=== PATIENT | female | born 1995 | race Caucasian/White ===

== ENCOUNTER 2018-01-27 19:01 | Emergency (ER) | payer OTHER ==
[2018-01-27] MEDS ORDERED: ONDANSETRON HCL INJ/PF 4 MG/2 ML SDV IV ONE (19:27)
[2018-01-27] MEDS ORDERED: NORMAL SALINE 1000 ML 1,000 ML IV ONE (19:27)
[2018-01-27] MEDS ORDERED: HYDROMORPHONE HCL INJ/PF 2 MG/ML AMPULE IV ONE (19:27)
[2018-01-27] MEDS ORDERED: KETOROLAC TROMETHAMINE INJ/PF 30 MG/1 ML SDV IV ONE (19:45)
--- NOTE | 2018-01-27 19:50 | ER Document Report ---
ED Medical Screen (RME) - General Chief Complaint: Abdominal Pain Stated Complaint: RT ABDOMINAL PAIN Time Seen by Provider: 01/27/18 19:26 Notes: Patient was eating dinner when she had the sudden onset of right flank pain. This made her very nauseous. She cannot find a comfortable position. She has no previous history of kidney stones. She states she is in midcycle and this does feel somewhat similar to previous ovulation pain. She has had this once before and it spontaneously resolved. No known chronic medical problems or surgeries. TRAVEL OUTSIDE OF THE [place] IN LAST 30 DAYS: No - Related Data Allergies/Adverse Reactions: No Known Allergies Allergy (Verified 01/27/18 19:01) Past Medical History - Social History Frequency of alcohol use: None Renal/ Medical History: Denies: Hx Peritoneal Dialysis Physical Exam - Vital signs Vitals: Temp Pulse Resp BP Pulse Ox 97.6 F 69 16 128/71 H 100 01/27/18 19:05 01/27/18 19:05 01/27/18 19:05 01/27/18 19:05 01/27/18 19:05 Course - Vital Signs Vital signs: Temp Pulse Resp BP Pulse Ox 97.6 F 69 16 128/71 H 100 01/27/18 19:05 01/27/18 19:05 01/27/18 19:05 01/27/18 19:05 01/27/18 19:05 - Laboratory Result Diagrams: 01/27/18 19:38 01/27/18 19:38
[2018-01-27 20:08] LABS: HEMATOCRIT 42.7 % (36.0-47.0); HEMOGLOBIN 14.6 g/dL (12.0-15.5); MEAN CORPUSCULAR HEMOGLOBIN 30.8 pg (27.0-33.4); MEAN CORPUSCULAR HGB CONC 34.2 g/dL (32.0-36.0); MEAN CORPUSCULAR VOLUME 90 fl (80-97); PLATELET COUNT 312 10^3/uL (150-450); RED BLOOD COUNT 4.74 10^6/uL (3.72-5.28); RED CELL DISTRIBUTION WIDTH 12.9 % (11.5-14.0); WHITE BLOOD COUNT 9.5 10^3/uL (4.0-10.5)
[2018-01-27 20:14] LABS: ALANINE AMINOTRANSFERASE 29 U/L (9-52); ALBUMIN 4.8 g/dL (3.5-5.0); ALKALINE PHOSPHATASE 84 U/L (38-126); ANION GAP 13 (5-19); ASPARTATE AMINO TRANSFERASE 14 U/L (14-36); BILIRUBIN,DIRECT 0.3 mg/dL (0.0-0.4); BILIRUBIN,TOTAL 0.4 mg/dL (0.2-1.3); BLOOD UREA NITROGEN 19 mg/dL (7-20); CALCIUM 9.8 mg/dL (8.4-10.2); CARBON DIOXIDE 21 mmol/L (22-30); CHLORIDE 104 mmol/L (98-107); GLUCOSE 106 mg/dL (75-110); POTASSIUM 3.6 mmol/L (3.6-5.0); SODIUM 138.4 mmol/L (137-145); TOTAL PROTEIN 7.8 g/dL (6.3-8.2)
[2018-01-27 20:36] LABS: ABSOLUTE LYMPHOCYTES# (MANUAL) 5.6 10^3/uL (0.5-4.7); ABSOLUTE MONOCYTES # (MANUAL) 0.4 10^3/uL (0.1-1.4); ABSOLUTE NEUTROPHILS# (MANUAL) 3.3 10^3/uL (1.7-8.2); BASOPHILS % (MANUAL) 0 % (0-2); EOSINOPHILS % (MANUAL) 2 % (0-6); LYMPHOCYTES % (MANUAL) 58 % (13-45); MONOCYTES % (MANUAL) 4 % (3-13); SEGMENTED NEUTROPHILS % (MAN) 35 % (42-78); TOTAL CELLS COUNTED 100
[2018-01-27 20:38] LABS: PLATELET COMMENT ADEQUATE; RBC MORPHOLOGY COMMENT NORMO-CYTIC/CHROMIC
[2018-01-27] MEDS ORDERED: ONDANSETRON 4 MG TAB.RAPDIS PO ONE (21:37)
--- NOTE | 2018-01-27 21:56 | RADIOLOGY REPORT (SQ) ---
EXAM DESCRIPTION: CT ABD/PELVIS NO ORAL OR IV COMPLETED DATE/TIME: 01/27/2018 9:41 pm REASON FOR STUDY: rlq pain COMPARISON: None. TECHNIQUE: CT scan of the abdomen and pelvis performed without intravenous or oral contrast. Images reviewed with lung, soft tissue, and bone windows. Reconstructed coronal and sagittal MPR images revi ewed. All images stored on PACS. All CT scanners at this facility use dose modulation, iterative reconstruction, and/or weight based d osing when appropriate to reduce radiation dose to as low as reasonably achievable (ALARA). [facility]: Dose Right [facility]: CareDose [facility]: Dose Right [facility]: Teradose 4D [facility]: Smart [employer] RADIATION DOSE: CT Rad equipment meets quality standard of care and radiation dose reduction techniq ues were employed. CTDIvol: 5.6 mGy. DLP: 293 mGy-cm.mGy. LIMITATIONS: None. FINDINGS: LOWER CHEST: No significant findings. No nodules or infiltrates. NON-CONTRASTED LIVER, SPLEEN, ADRENALS: Evaluation limited by lack of IV contrast. No identified sign ificant masses. PANCREAS: No masses. No peripancreatic inflammatory changes. GALLBLADDER: No identified stones by CT criteria. No inflammatory changes to suggest cholecystitis. RIGHT KIDNEY AND URETER: No suspicious masses. Assessment limited by lack of IV contrast. No signif icant calcifications. No hydronephrosis or hydroureter. LEFT KIDNEY AND URETER: No suspicious masses. Assessment limited by lack of IV contrast. No signifi cant calcifications. No hydronephrosis or hydroureter. AORTA AND RETROPERITONEUM: No aneurysm. No retroperitoneal masses or adenopathy. BOWEL AND PERITONEAL CAVITY: No obvious masses or inflammatory changes. No free fluid. APPENDIX: Normal. PELVIS, BLADDER, AND ABDOMINAL WALL:Large mass posterior to the uterus with transverse measurement of 8.5 x 9 cm. Mixed heterogenous density with significant fatty components. Also fairly large calcif ic/bony components. Similar smaller mass in the left adnexa measuring 2 x 2.5 cm. No free fluid. Tom dder normal. BONES: No significant findings. OTHER: No other significant finding. IMPRESSION: 1. PELVIC MASSES DESCRIBED WITH SIGNIFICANT FATTY COMPONENTS WELL CALCIFIC/BONY COMPONENTS. THESE ARE MOST CONSISTENT WITH OVARIAN DERMOIDS. 2. NO OTHER SIGNIFICANT OR ACUTE PROCESS IN THE ABDOMEN OR PELVIS. COMMENT: Quality ID # [id number]: Final reports with documentation of one or more dose reduction techniques (e.g., Automated exposure control, adjustment of the mA and/or kV according to patient size, use of iterative reconstruction technique) TECHNICAL DOCUMENTATION: JOB ID: [id number] [employer]- All Rights Reserved Reading location - IP/workstation name: [email or web address]
--- NOTE | 2018-01-27 21:58 | ER Document Report ---
ED General - General Chief Complaint: Abdominal Pain Stated Complaint: RT ABDOMINAL PAIN Time Seen by Provider: 01/27/18 19:26 Mode of Arrival: Ambulatory Information source: Patient, Relative Notes: 22-year-old female with a history of depression and ulcerative colitis. Presents with complaint of abdominal pain. Patient states that 2 hours prior to arrival she was sitting at a restaurant when she had a sudden onset of right lower quadrant pain. She states the pain was sharp and initially constant, But is now intermittent. She does admit to prior similar symptoms and states that this occurs around the time that she is ovulating. Patient denies any fever, chills, dysuria, vaginal discharge. She is sexually active with her . She Was on control pills but she stopped this last month because she believed that the medication was causing her symptoms. TRAVEL OUTSIDE OF THE [place] IN LAST 30 DAYS: No - HPI Onset: Just prior to arrival Onset/Duration: Sudden, Intermittent Quality of pain: Stabbing Severity: Moderate Pain Level: 3 Associated symptoms: denies: Fever - Related Data Allergies/Adverse Reactions: No Known Allergies Allergy (Verified 01/27/18 19:01) Past Medical History - General Information source: Patient, Relative Last Menstrual Period: 01/13/18 - Social History Smoking Status: Never Smoker Frequency of alcohol use: None Drug Abuse: None Lives with: Family, Spouse/Significant other Family History: Reviewed & Not Pertinent Patient has suicidal ideation: No Patient has homicidal ideation: No - Medical History Medical History: Other - depression ulcerative colitis Renal/ Medical History: Denies: Hx Peritoneal Dialysis Review of Systems - Review of Systems Constitutional: Malaise. denies: Fever EENT: No symptoms reported Cardiovascular: denies: Chest pain, Syncope Respiratory: No symptoms reported Gastrointestinal: Abdominal pain, Nausea. denies: Vomiting, Constipation, Blood in vomit, Black stools Genitourinary: denies: Dysuria, Discharge, Flank pain Female Genitourinary: denies: , Vaginal discharge, Vaginal odor Physical Exam - Vital signs Vitals: Temp Pulse Resp BP Pulse Ox 97.6 F 69 16 128/71 H 100 01/27/18 19:05 01/27/18 19:05 01/27/18 19:05 01/27/18 19:05 01/27/18 19:05 Interpretation: Normal. No: Hypotensive, Tachycardic, Febrile - General General appearance: Appears well, Alert - Abdominal Inspection: Normal Distension: No distension Bowel sounds: Normal Tenderness: Tender, Other - RLQ pain. No: McBurney's point, Melgar's sign, Guarding, Rebound Organomegaly: No organomegaly - Genitourinary Speculum exam: Normal, Cervix closed Vaginal bleeding: None Bimanuel exam: Adnexal mass, Adnexal tenderness - Back Back: Normal, Nontender. No: CVA tenderness Course - Re-evaluation Re-evalutation: 01/28/18 00:31 22-year-old female presents with complaint of sudden onset of right lower quadrant pain just prior to arrival. Upon arrival vitals are reviewed and within normal limits. Patient is afebrile, normotensive and not hypoxic. She does not appear toxic or dehydrated. Exam is significant for right lower quadrant tenderness without guarding or rebound.CT of the abdomen and pelvis showed a complex mass behind the uterus. Transvaginal ultrasound was then ordered and this was significant for a 10 cm dermoid cyst on the right ovary. Patient Received fentanyl for pain.Significant laboratory findings include a urinalysis that shows 80 ketones. Patient did receive IV fluids for this. I did page [employer]PER[employer] at 12:34 AM no answer at this time. I spoke to the patient and her at length regarding the need to return to ER if she experiences pain again. I did explain that she could be intermittently torsing. I spoke with Dr. Zambrano from OBGYN who does not recommend any emergent intervention, but does advise f/u for discussion of surgical removal of cyst. Patient was discharged home with Citlalli and Jorge. Laboratory 01/27/18 01/27/18 01/27/18 19:38 19:38 19:38 WBC 9.5 RBC 4.74 Hgb 14.6 Hct 42.7 MCV 90 MCH 30.8 MCHC 34.2 RDW 12.9 Plt Count 312 Total Counted 100 Seg Neutrophils % Not Reportable Seg Neuts % (Manual) 35 L Lymphocytes % Not Reportable Lymphocytes % (Manual) 58 H Atypical Lymphs % 1 Monocytes % Not Reportable Monocytes % (Manual) 4 Eosinophils % Not Reportable Eosinophils % (Manual) 2 Basophils % Not Reportable Basophils % (Manual) 0 Absolute Neutrophils Not Reportable Abs Neuts (Manual) 3.3 Absolute Lymphocytes Not Reportable Abs Lymphs (Manual) 5.6 H Absolute Monocytes Not Reportable Abs Monocytes (Manual) 0.4 Absolute Eosinophils Not Reportable Absolute Eos (Manual) 0.2 Absolute Basophils Not Reportable Abs Basophils (Manual) 0.0 Platelet Comment ADEQUATE RBC Morph Comment NORMO-CYTIC/CHROMIC Sodium 138.4 Potassium 3.6 Chloride 104 Carbon Dioxide 21 L Anion Gap 13 BUN 19 Creatinine 0.61 Est GFR ( Amer) > 60 Est GFR (Non-Af Amer) > 60 Glucose 106 Calcium 9.8 Total Bilirubin 0.4 Direct Bilirubin 0.3 Neonat Total Bilirubin Not Reportable Neonat Direct Bilirubin Not Reportable Neonat Indirect Bili Not Reportable AST 14 ALT 29 Alkaline Phosphatase 84 Total Protein 7.8 Albumin 4.8 Serum HCG, Qual NEGATIVE Urine Color Urine Appearance Urine pH Ur Specific Sunburst Urine Protein Urine Glucose (UA) Urine Ketones Urine Blood Urine Nitrite Urine Bilirubin Urine Urobilinogen Ur Leukocyte Esterase Urine WBC (Auto) Urine RBC (Auto) Squamous Epi Cells Auto Urine Mucus (Auto) Urine Ascorbic Acid Urine HCG, Qual 01/27/18 23:36 WBC RBC Hgb Hct MCV MCH MCHC RDW Plt Count Total Counted Seg Neutrophils % Seg Neuts % (Manual) Lymphocytes % Lymphocytes % (Manual) Atypical Lymphs % Monocytes % Monocytes % (Manual) Eosinophils % Eosinophils % (Manual) Basophils % Basophils % (Manual) Absolute Neutrophils Abs Neuts (Manual) Absolute Lymphocytes Abs Lymphs (Manual) Absolute Monocytes Abs Monocytes (Manual) Absolute Eosinophils Absolute Eos (Manual) Absolute Basophils Abs Basophils (Manual) Platelet Comment RBC Morph Comment Sodium Potassium Chloride Carbon Dioxide Anion Gap BUN Creatinine Est GFR ( Amer) Est GFR (Non-Af Amer) Glucose Calcium Total Bilirubin Direct Bilirubin Neonat Total Bilirubin Neonat Direct Bilirubin Neonat Indirect Bili AST ALT Alkaline Phosphatase Total Protein Albumin Serum HCG, Qual Urine Color YELLOW Urine Appearance CLEAR Urine pH 6.0 Ur Specific Sunburst 1.023 Urine Protein NEGATIVE Urine Glucose (UA) NEGATIVE Urine Ketones 80 H Urine Blood NEGATIVE Urine Nitrite NEGATIVE Urine Bilirubin NEGATIVE Urine Urobilinogen NEGATIVE Ur Leukocyte Esterase NEGATIVE Urine WBC (Auto) 4 Urine RBC (Auto) 1 Squamous Epi Cells Auto 1 Urine Mucus (Auto) OCC Urine Ascorbic Acid NEGATIVE Urine HCG, Qual NEGATIVE Abdomen/Pelvis CT 01/27/18 19:27 IMPRESSION: 1. PELVIC MASSES DESCRIBED WITH SIGNIFICANT FATTY COMPONENTS WELL CALCIFIC/BONY COMPONENTS. THESE ARE MOST CONSISTENT WITH OVARIAN DERMOIDS. 2. NO OTHER SIGNIFICANT OR ACUTE PROCESS IN THE ABDOMEN OR PELVIS. Transvaginal US 01/27/18 22:40 IMPRESSION: Bilateral ovarian dermoids measure 10.7 cm on the right and 2.7 cm on the left. There is increased risk for developing ovarian torsion, especially on the right. 01/28/18 00:[address] Zambrano from [employer] who recommends follow-up for removal of the cyst. 01/28/18 01:04 Patient tolerating fluids prior to discharge 01/28/18 03:42 - Vital Signs Vital signs: Temp Pulse Resp BP Pulse Ox 98.4 F 77 12 103/65 100 01/28/18 01:17 01/28/18 01:17 01/28/18 01:17 01/28/18 01:17 01/28/18 01:17 - Laboratory Result Diagrams: 01/27/18 19:38 01/27/18 19:38 Laboratory results interpreted by me: 01/27/18 01/27/18 01/27/18 19:38 19:38 23:36 Seg Neuts % (Manual) 35 L Lymphocytes % (Manual) 58 H Abs Lymphs (Manual) 5.6 H Carbon Dioxide 21 L Urine Ketones 80 H Procedures - Pelvic Exam Pelvic exam Cultures obtained: No Wet prep obtained: No Herpes culture obtained: No POC sent to lab: Yes Foreign body removed: No Bimanual exam performed: Yes - right adenexal fullness Discharge - Discharge Clinical Impression: Dermoid cyst of both ovaries Ovarian cyst Qualifiers: Laterality: bilateral Qualified Code(s): N83.201 - Unspecified ovarian cyst, right side Condition: Good Disposition: HOME, SELF-CARE Instructions: Abdominal Pain ([facility]), Ovarian Cyst ([facility]) Additional Instructions: Your ultrasound showed a large cyst on your right ovary. Currently There is adequate blood flow. If you experience a sudden onset of sharp abdominal pain please return to the emergency department immediately. This size cyst could cause a twisting of the ovary that could cmpromise blood flow. you will need to be seen by green hide inspector to discuss removal. Prescriptions: Hydrocodone/Acetaminophen [[place] 5-325 mg Tablet] 1 tab PO Q4H PRN #12 tablet PRN Reason: Pain Scale Of 2 Naproxen [Naprosyn] 500 mg PO Q12H #20 tablet Forms: Return to Work Referrals: NOA ZAMBRANO MD [ACTIVE STAFF] - Follow up tomorrow
[2018-01-27] MEDS ORDERED: FENTANYL CITRATE INJ/PF 100 MCG/2 ML AMPUL IV ONE (22:40)
[2018-01-27 23:53] LABS: APPEARANCE,URINE CLEAR; BILIRUBIN,URINE NEGATIVE (NEGATIVE); COLOR,URINE YELLOW; GLUCOSE, URINE NEGATIVE (NEGATIVE); KETONES,URINE 80 mg/dL (NEGATIVE); LEUKOCYTE ESTERASE,URINE NEGATIVE (NEGATIVE); NITRITE,URINE NEGATIVE (NEGATIVE); PROTEIN,URINE NEGATIVE (NEGATIVE); URINE SPECIFIC GRAVITY 1.023; UROBILINOGEN,URINE NEGATIVE mg/dL (<2.0)
--- NOTE | 2018-01-27 23:56 | RADIOLOGY REPORT (SQ) ---
EXAM DESCRIPTION: U/S NON OB PEL TV W/DOPPLER CLINICAL HISTORY: 22 years, Female, concern for torsion COMPARISON: CT, same day. TECHNIQUE: Transvaginal and transabdominal LIMITATIONS: None. FINDINGS: 8 cm uterus and 0.9 cm thick endometrial stripe appear of normal size, shape, echotexture, and vascularity. 10.9 cm right ovary contains a 10.7 cm complex mass with fat, fluid, and calcific components is correlated with CT consistent with a 10.7 cm right-sided ovarian dermoid. Vascularity present in right ovarian tissue. 4.8 cm left ovary contains a 2.7 cm complex mass with fat and calcific components correlated with CT consistent with a 2.7 cm left sided ovarian dermoid. Vascularity present in the left ovarian tissue. No free fluid. IMPRESSION: Bilateral ovarian dermoids measure 10.7 cm on the right and 2.7 cm on the left. There is increased risk for developing ovarian torsion, especially on the right.
[2018-01-28] MEDS ORDERED: NORMAL SALINE 1000 ML 1,000 ML IV ONE (00:44)
[2018-01-28] MEDS ORDERED: KETOROLAC TROMETHAMINE INJ/PF 30 MG/1 ML SDV IV ONE (00:48)
[2018-01-28 01:19] VITALS: BP 103/65
== END 2018-01-28 01:43 | disposition home or self-care (01) ==
LOC: ER 19:01
DX: D27.1 Benign neoplasm of left ovary (principal); D27.0 Benign neoplasm of right ovary; F32.9 Major depressive disorder, single episode, unspecified; R10.31 Right lower quadrant pain
CPT/HCPCS: 96376; 99284; 96361; 96374; 96375; 36415; 84703; 85025; 81025; 80053; 81001; 76830; 93976; 74176; S0119; J3010; J1885 ×2; J2405; J7030 ×2

== ENCOUNTER 2018-01-28 14:05 | Inpatient (IN) | payer OTHER ==
--- NOTE | 2018-01-28 14:57 | ER Document Report ---
ED General - General Chief Complaint: Pelvic Pain Stated Complaint: LOW RIGHT PELVIC PAIN,NAUSEA Time Seen by Provider: 01/28/18 14:43 Mode of Arrival: Ambulatory Information source: Patient Notes: 22-year-old female who was seen yesterday noted to have 10.7 cm dermoid cyst on the right and now 2.7 cm on the left presents with complaints of continued pain. Patient notes the pain was severe prior to arrival. Patient was sent home last night with pain medication Patient has follow-up with primary care physician and has referral in 7-10 days TRAVEL OUTSIDE OF THE [place] IN LAST 30 DAYS: No - HPI Onset: Yesterday Onset/Duration: Sudden, Intermittent Severity: Severe Pain Level: 3 Associated symptoms: Other Exacerbated by: Denies Relieved by: Denies Similar symptoms previously: Yes Recently seen / treated by doctor: Yes - Related Data Allergies/Adverse Reactions: No Known Allergies Allergy (Verified 01/27/18 19:01) Past Medical History - Social History Smoking Status: Never Smoker Cigarette use (# per day): No Chew tobacco use (# tins/day): No Smoking Education Provided: No Frequency of alcohol use: Occasional Drug Abuse: None Family History: Reviewed & Not Pertinent Patient has suicidal ideation: No Patient has homicidal ideation: No Renal/ Medical History: Denies: Hx Peritoneal Dialysis Review of Systems - Review of Systems Notes: REVIEW OF SYSTEMS: CONSTITUTIONAL : Denies fever, chills, or sweats. Denies recent illness. EENT: Denies eye, ear, throat, or mouth pain or symptoms. Denies nasal or sinus congestion or discharge. Denies throat, tongue, or mouth swelling or difficulty swallowing. CARDIOVASCULAR: Denies chest pain. Denies palpitations or racing or irregular heart beat. Denies ankle edema. RESPIRATORY: Denies cough, cold, or chest congestion. Denies shortness of breath, difficulty breathing, or wheezing. GASTROINTESTINAL: Admits to right lower quadrant pain GENITOURINARY: Denies difficulty urinating, painful urination, burning, frequency, blood in urine, or discharge. FEMALE GENITOURINARY: Denies vaginal bleeding, heavy or abnormal periods, irregular periods. Denies vaginal discharge or odor. MUSCULOSKELETAL: Denies back or neck pain or stiffness. Denies joint pain or swelling. SKIN: Denies rash, lesions or sores. HEMATOLOGIC : Denies easy bruising or bleeding. LYMPHATIC: Denies swollen, enlarged glands. NEUROLOGICAL: Denies confusion or altered mental status. Denies passing out or loss of consciousness. Denies dizziness or lightheadedness. Denies headache. Denies weakness or paralysis or loss of use of either side. Denies problems with gait or speech. Denies sensory loss, numbness, or tingling. Denies seizures. PSYCHIATRIC: Denies anxiety or stress. Denies depression, suicidal ideation, or homicidal ideation. ALL OTHER SYSTEMS REVIEWED AND NEGATIVE. PHYSICAL EXAMINATION: GENERAL: Well-appearing, well-nourished and in no acute distress. HEAD: Atraumatic, normocephalic. EYES: Pupils equal round and reactive to light, extraocular movements intact, conjunctiva are normal. ENT: Nares patent, oropharynx clear without exudates. Moist mucous membranes. NECK: Normal range of motion, supple without lymphadenopathy LUNGS: Breath sounds clear to auscultation bilaterally and equal. No wheezes rales or rhonchi. HEART: Regular rate and rhythm without murmurs ABDOMEN: Soft, nontender, nondistended abdomen. No guarding, no rebound. No masses appreciated. Female : deferred Musculoskeletal: Normal range of motion, no pitting or edema. No cyanosis. NEUROLOGICAL: Cranial nerves grossly intact. Normal speech, normal gait. Normal sensory, motor exams PSYCH: Normal mood, normal affect. SKIN: Warm, Dry, normal turgor, no rashes or lesions noted. Dictation was performed using [employer] voice recognition software Physical Exam - Vital signs Vitals: Temp Pulse Resp BP Pulse Ox 98.7 F 72 14 116/75 97 01/28/18 14:01/28/18 14:09 01/28/18 14:09 01/28/18 14:09 01/28/18 14:09 Course - Re-evaluation Re-evalutation: 01/28/18 15:02 Due to my concerns for ovarian torsion and the fact that this cyst is quite large I did contact Dr. Higginbotham who is agreeable to admitting the patient set for surgical procedure tomorrow - Vital Signs Vital signs: Temp Pulse Resp BP Pulse Ox 98.7 F 72 14 116/75 97 01/28/18 14:09 01/28/18 14:09 01/28/18 14:41 01/28/18 14:09 01/28/18 14:09 - Diagnostic Test Radiology reviewed: Image reviewed, Reports reviewed - Reviewed imaging from yesterday Discharge - Discharge Clinical Impression: Dermoid cyst of both ovaries, Pelvic pain Ovarian cyst Qualifiers: Laterality: right Qualified Code(s): N83.201 - Unspecified ovarian cyst, right side Condition: Stable Disposition: ADMITTED OBSERVATION Admitting Provider: [facility] Admitted: Post
--- NOTE | 2018-01-28 15:40 | RADIOLOGY REPORT (SQ) ---
EXAM DESCRIPTION: CHEST PA/LAT COMPLETED DATE/TIME: 01/28/2018 3:30 pm REASON FOR STUDY: pre op COMPARISON: None. EXAM PARAMETERS: NUMBER OF VIEWS: two views TECHNIQUE: Digital Frontal and Lateral radiographic views of the chest acquired. RADIATION DOSE: NA LIMITATIONS: none FINDINGS: LUNGS AND PLEURA: No opacities, masses or pneumothorax. No pleural effusion. MEDIASTINUM AND HILAR STRUCTURES: No masses or contour abnormalities. HEART AND VASCULAR STRUCTURES: Heart normal size. No evidence for failure. BONES: No acute findings. HARDWARE: None in the chest. OTHER: No other significant finding. IMPRESSION: NO SIGNIFICANT RADIOGRAPHIC FINDING IN THE CHEST. TECHNICAL DOCUMENTATION: JOB ID: [id number] [employer]- All Rights Reserved Reading location - IP/workstation name: [email or web address]
[2018-01-28 15:56] LABS: ABSOLUTE LYMPHOCYTES (AUTO) 2.7 10^3/uL (0.5-4.7); ABSOLUTE MONOCYTES (AUTO) 0.5 10^3/uL (0.1-1.4); ABSOLUTE NEUT (AUTO) 4.8 10^3/uL (1.7-8.2); BASOPHILS % (AUTO) 0.2 % (0-2); EOSINOPHILS % (AUTO) 0.2 % (0-6); HEMATOCRIT 42.7 % (36.0-47.0); HEMOGLOBIN 14.5 g/dL (12.0-15.5); MEAN CORPUSCULAR HEMOGLOBIN 30.6 pg (27.0-33.4); MEAN CORPUSCULAR HGB CONC 33.9 g/dL (32.0-36.0); MEAN CORPUSCULAR VOLUME 90 fl (80-97); MONOCYTES % (AUTO) 6.6 % (3-13); PLATELET COUNT 262 10^3/uL (150-450); RED BLOOD COUNT 4.73 10^6/uL (3.72-5.28); RED CELL DISTRIBUTION WIDTH 13.3 % (11.5-14.0); TOTAL CELLS COUNTED % (AUTO) 100 %
[2018-01-28 16:15] LABS: ALANINE AMINOTRANSFERASE 26 U/L (9-52); ALBUMIN 4.6 g/dL (3.5-5.0); ALKALINE PHOSPHATASE 71 U/L (38-126); ANION GAP 11 (5-19); ASPARTATE AMINO TRANSFERASE 14 U/L (14-36); BILIRUBIN,DIRECT 0.3 mg/dL (0.0-0.4); BLOOD UREA NITROGEN 8 mg/dL (7-20); CALCIUM 9.6 mg/dL (8.4-10.2); CARBON DIOXIDE 22 mmol/L (22-30); CHLORIDE 106 mmol/L (98-107); GLUCOSE 82 mg/dL (75-110); SODIUM 139.1 mmol/L (137-145); TOTAL PROTEIN 7.5 g/dL (6.3-8.2)
[2018-01-28] MEDS ORDERED: NORMAL SALINE 250 ML IV PRN (17:23)
[2018-01-28] MEDS ORDERED: OXYCODONE-ACETAMINOPHEN 5-325 MG TABLET PO PRN (18:01)
[2018-01-28 18:14] LABS: ABSOLUTE LYMPHOCYTES (AUTO) 2.9 10^3/uL (0.5-4.7); ABSOLUTE MONOCYTES (AUTO) 0.5 10^3/uL (0.1-1.4); BASOPHILS % (AUTO) 0.3 % (0-2); EOSINOPHILS % (AUTO) 0.3 % (0-6); HEMATOCRIT 44.2 % (36.0-47.0); HEMOGLOBIN 14.7 g/dL (12.0-15.5); LYMPHOCYTES % (AUTO) 39.2 % (13-45); MEAN CORPUSCULAR HEMOGLOBIN 30.3 pg (27.0-33.4); MEAN CORPUSCULAR HGB CONC 33.4 g/dL (32.0-36.0); MEAN CORPUSCULAR VOLUME 91 fl (80-97); MONOCYTES % (AUTO) 6.5 % (3-13); PLATELET COUNT 249 10^3/uL (150-450); RED BLOOD COUNT 4.87 10^6/uL (3.72-5.28); RED CELL DISTRIBUTION WIDTH 13.1 % (11.5-14.0); SEGMENTED NEUTROPHILS % (AUTO) 53.7 % (42-78); TOTAL CELLS COUNTED % (AUTO) 100 %; WHITE BLOOD COUNT 7.4 10^3/uL (4.0-10.5)
--- NOTE | 2018-01-28 18:59 | EKG REPORT ---
SEVERITY:- NORMAL ECG - SINUS RHYTHM : Confirmed by: Simba Garcia MD 28-Jan-2018 18:58:44
[2018-01-28 20:17] LABS: APPEARANCE,URINE CLEAR; BILIRUBIN,URINE NEGATIVE (NEGATIVE); COLOR,URINE STRAW; GLUCOSE, URINE 50 mg/dL (NEGATIVE); KETONES,URINE 20 mg/dL (NEGATIVE); LEUKOCYTE ESTERASE,URINE NEGATIVE (NEGATIVE); NITRITE,URINE NEGATIVE (NEGATIVE); PROTEIN,URINE NEGATIVE (NEGATIVE); URINE SPECIFIC GRAVITY 1.004; UROBILINOGEN,URINE NEGATIVE mg/dL (<2.0)
[2018-01-29] MEDS ORDERED: RINGERS SOLUTION,LACTATED 1,000 ML IV PRN
[2018-01-29] MEDS ORDERED: MIDAZOLAM 2 MG/2 ML INJ ONE ×2 (07:04→16:48)
[2018-01-29] MEDS ORDERED: FENTANYL CITRATE INJ/PF 100 MCG/2 ML AMPUL ONE ×2 (07:04→16:48)
[2018-01-29] MEDS ORDERED: LIDOCAINE 2% INJ-PF (20 MG/ML) 10 ML AMPUL ONE ×2 (07:04→16:48)
[2018-01-29] MEDS ORDERED: ACETAMINOPHEN 100 ML IV ONE (07:05)
[2018-01-29] MEDS ORDERED: PROPOFOL INJ 200 MG/20 ML VIAL IV ONE ×2 (07:05→16:49)
[2018-01-29] MEDS ORDERED: EPHEDRINE SULFATE INJ 50 MG/1 ML AMPULE ONE (07:05)
[2018-01-29] MEDS ORDERED: CEFAZOLIN 1 GM/D5W RTU 1 GM/50 ML RTUPB IV PRN (08:00)
[2018-01-29] MEDS ORDERED: CEFAZOLIN SODIUM 1 GM in DEXTROSE 5%-WATER 50 ML IV PRN (08:00)
[2018-01-29] MEDS ORDERED: VECURONIUM BROMIDE INJ 10 MG VIAL IV ONE ×2 (08:15→15:51)
[2018-01-29] MEDS ORDERED: GLYCOPYRROLATE INJ 0.4 MG/2 ML VIAL ONE ×2 (08:15→15:51)
[2018-01-29] MEDS ORDERED: SUCCINYLCHOLINE CHLORIDE INJ 200 MG/10 ML VIAL ONE ×2 (08:15→15:51)
[2018-01-29] MEDS ORDERED: NEOSTIGMINE METHYLSULFATE 10 MG/10 ML VIAL ONE ×2 (08:15→15:51)
[2018-01-29] MEDS ORDERED: FENTANYL CITRATE INJ/PF 100 MCG/2 ML AMPUL IV PRN ×6 (08:40→18:13)
[2018-01-29] MEDS ORDERED: PROMETHAZINE HCL INJ 25 MG/1 ML VIAL IV PRN ×4 (08:40→18:13)
[2018-01-29] MEDS ORDERED: DIPHENHYDRAMINE HCL 50 MG/ML VIAL IV PRN ×2 (08:40→18:13)
[2018-01-29] MEDS ORDERED: MICROFIBRILLAR COLLAGEN 1 GM PACK ONE (08:58)
[2018-01-29] MEDS: FENTANYL CITRATE INJ/PF 100 MCG/2 ML AMPUL ONE ×2 (09:55→10:00)
[2018-01-29] MEDS ORDERED: DEXTROSE 5%-LACTATED RINGERS 1,000 ML IV PRN ×2 (10:03→18:11)
[2018-01-29] MEDS ORDERED: HYDROMORPHONE HCL 2 MG TABLET PO PRN (10:04)
[2018-01-29] MEDS ORDERED: NALBUPHINE HCL INJ 10 MG/1 ML AMPULE IV PRN ×2 (10:05)
--- NOTE | 2018-01-29 10:19 | OPERATIVE REPORT E ---
Operative Report NAME: HARRISON STEARNS : 1995 AGE: 22Y DATE OF SURGERY: 01/29/2018 ROOM: 206 PREOPERATIVE DIAGNOSIS: Pelvic mass. POSTOPERATIVE DIAGNOSIS: Bilateral dermoid cyst. PROCEDURE: Exploratory laparotomy with a right oophorectomy and a left cystectomy. SURGEON: Mauri ANDERS M.D. STORAGE BATTERY INSPECTOR: Dr. Lozano ESTIMATED BLOOD LOSS: Less than 100 mL. ANESTHESIA: General. TISSUE REMOVED OR ALTERED: Right dermoid and left dermoid. PROCEDURE: The patient was placed in supine position, prepped and draped in sterile fashion. A Pfannenstiel incision was made. The incision extended through subcutaneous tissue and fascia with sharp dissection. The fascia was sharply divided. Rectal muscle was sharply divided and parietal peritoneum was entered with sharp dissection. The right ovary was identified and noted approximately at 10 cm and appeared that it was a complete dermoid with no ovarian tissue being recognized. The ovarian ligament was clamped, divided, and sutured with ties of 2-0 Vicryl and hemostasis was noted. That was wrapped with Intercede. The left ovary was identified and a linear incision was made across and the dermoid was shelled out and removed. The ovarian bed was then cauterized and Surgicel was placed in the bed and the deep fascia closed with running suture of 0 chromic. Hemostasis was noted. Ovary was wrapped with Intercede. The pelvis was irrigated with copious amount of irrigation until clear. The fascia was then closed with 0 Vicryl in a running fashion and the skin was closed with subcu absorbable darron. The patient tolerated procedure. Urine remained clear throughout the procedure. She was taken to the recovery room in good condition. DICTATING PHYSICIAN: Mauri ANDERS M.D. [id number] PHY#: [id number] ID: [id number] JOB#: [id number] ACCT: [id number] cc:Mauri ANDERS M.D. >
[2018-01-29] MEDS: CITALOPRAM HYDROBROMIDE 20 MG TABLET PO SCH (14:05)
[2018-01-29] MEDS ORDERED: DEXTROSE 40% GEL 15 GM TUBE PO PRN ×2 (15:09)
[2018-01-29] MEDS ORDERED: DEXTROSE 50%-WATER 25 GM/50 ML DISP.SYRIN IV PRN ×2 (15:09)
[2018-01-29] MEDS ORDERED: GLUCAGON,HUMAN RECOMB 1 MG INJ SUBCUT PRN (15:09)
[2018-01-29 15:24] LABS: ABSOLUTE LYMPHOCYTES (AUTO) 0.8 10^3/uL (0.5-4.7); ABSOLUTE NEUT (AUTO) 12.7 10^3/uL (1.7-8.2); BASOPHILS % (AUTO) 0.1 % (0-2); HEMATOCRIT 28.1 % (36.0-47.0); LYMPHOCYTES % (AUTO) 5.4 % (13-45); MEAN CORPUSCULAR HEMOGLOBIN 30.4 pg (27.0-33.4); MEAN CORPUSCULAR HGB CONC 33.3 g/dL (32.0-36.0); MEAN CORPUSCULAR VOLUME 91 fl (80-97); MONOCYTES % (AUTO) 6.8 % (3-13); PLATELET COUNT 241 10^3/uL (150-450); RED BLOOD COUNT 3.08 10^6/uL (3.72-5.28); RED CELL DISTRIBUTION WIDTH 12.7 % (11.5-14.0); SEGMENTED NEUTROPHILS % (AUTO) 87.7 % (42-78); TOTAL CELLS COUNTED % (AUTO) 100 %; WHITE BLOOD COUNT 14.4 10^3/uL (4.0-10.5)
[2018-01-29 15:26] LABS: HEMOGLOBIN 9.4 g/dL (12.0-15.5)
[2018-01-29 15:50] LABS: INTERNATIONAL RATION (INR) 1.07; PARTIAL THROMBOPLASTIN TIME 21.6 SEC (23.5-35.8); PROTHROMBIN TIME 14.6 SEC (11.4-15.4)
[2018-01-29] MEDS ORDERED: DEXAMETHASONE SOD PHOSPHATE INJ 4 MG/1 ML VIAL ONE ×2 (15:51→16:49)
[2018-01-29] MEDS: IBUPROFEN 800 MG TABLET PO SCH ×2 (17:17→20:44)
[2018-01-29] MEDS ORDERED: MEPERIDINE HCL/PF INJ 25 MG/1 ML DISP.SYRIN IV PRN (18:13)
[2018-01-29] MEDS ORDERED: MORPHINE SULFATE 10 MG/ML INJ IV PRN (18:13)
[2018-01-29] MEDS ORDERED: OXYCODONE-ACETAMINOPHEN 5-325 MG TABLET PO PRN ×2 (18:13)
--- NOTE | 2018-01-29 18:29 | OPERATIVE REPORT E ---
Operative Report NAME: HARRISON STEARNS : 1995 AGE: 22Y DATE OF SURGERY: 01/29/2018 ROOM: 206 PREOPERATIVE DIAGNOSIS: SUSPECTED HEMOPERITONEUM. POSTOPERATIVE DIAGNOSIS: BLEEDING FROM RECTUS MUSCLES. OPERATION: Exploratory laparotomy with cautery of multiple bleeding sites on the rectus muscle. SURGEON: Mauri ANDERS M.D. CASINO ENFORCEMENT AGENT: Dr. Lozano. ANESTHESIA: General. TISSUE REMOVED: None. ESTIMATED BLOOD LOSS: From a clot that was over the rectus muscle was approximately 500 to 600 cc. PROCEDURE: Patient was placed in a supine position, prepped and draped in sterile fashion. The darron were cut through and the incision opened and a large amount of clot was noted on top of the rectus muscles. There also appeared to be an open area in the fascia, on the anterior portion of the incision. The parietal peritoneum was then entered by cutting the suture previously placed. Very little blood was in the abdomen. The cul-de-sac was irrigated with multiple irrigation and no bleeding was noted behind the uterus. The right tube was elevated, and where the previous suture was placed, was dry. No bleeding was noted. The ovary was elevated on the left, and again, it was dry, with no oozing being noted. The abdomen was thoroughly inspected and no other bleeding sites were noted. The rectus muscles appeared to be oozing from several points. Cautery was used and FloSeal was then placed on top of the rectus muscles. *------* placed over that. The fascial defect was then closed in the anterior portion using running Vicryl, then the incision was closed with running 0 PDS. Again, hemostasis was noted. The incision was closed with subcutaneous absorbable darron. She tolerated the procedure well and was taken to recovery in good condition. DICTATING PHYSICIAN: Mauri ANDERS M.D. [id number] PHY#: [id number] ID: [id number] JOB#: [id number] ACCT: [id number] cc:Mauri ANDERS M.D. >
[2018-01-29 19:01] LABS: MEAN CORPUSCULAR HEMOGLOBIN 30.6 pg (27.0-33.4); MEAN CORPUSCULAR VOLUME 90 fl (80-97); RED BLOOD COUNT 3.19 10^6/uL (3.72-5.28); RED CELL DISTRIBUTION WIDTH 13.2 % (11.5-14.0)
[2018-01-29 19:21] LABS: ABSOLUTE LYMPHOCYTES# (MANUAL) 0.8 10^3/uL (0.5-4.7); ABSOLUTE MONOCYTES # (MANUAL) 0.4 10^3/uL (0.1-1.4); ABSOLUTE NEUTROPHILS# (MANUAL) 11.6 10^3/uL (1.7-8.2); BASOPHILS % (MANUAL) 0 % (0-2); EOSINOPHILS % (MANUAL) 0 % (0-6); LYMPHOCYTES % (MANUAL) 6 % (13-45); MONOCYTES % (MANUAL) 3 % (3-13); SEGMENTED NEUTROPHILS % (MAN) 91 % (42-78); TOTAL CELLS COUNTED 100
[2018-01-29 19:23] LABS: BURR CELLS SLIGHT; OVALOCYTES 1+; PLATELET COMMENT ADEQUATE; POIKILOCYTOSIS SLIGHT
[2018-01-29 19:25] LABS: HEMATOCRIT 28.7 % (36.0-47.0); HEMOGLOBIN 9.8 g/dL (12.0-15.5); WHITE BLOOD COUNT 12.8 10^3/uL (4.0-10.5)
[2018-01-29 19:26] LABS: PLATELET COUNT 190 10^3/uL (150-450)
[2018-01-30] MEDS: NORMAL SALINE 1000 ML 1,000 ML IV PRN ×2 (03:05→23:27)
[2018-01-30 04:38] LABS: ABSOLUTE LYMPHOCYTES (AUTO) 2.8 10^3/uL (0.5-4.7); ABSOLUTE MONOCYTES (AUTO) 1.1 10^3/uL (0.1-1.4); ABSOLUTE NEUT (AUTO) 5.5 10^3/uL (1.7-8.2); BASOPHILS % (AUTO) 0.3 % (0-2); HEMATOCRIT 26.1 % (36.0-47.0); LYMPHOCYTES % (AUTO) 29.8 % (13-45); MEAN CORPUSCULAR HEMOGLOBIN 30.8 pg (27.0-33.4); MEAN CORPUSCULAR HGB CONC 34.4 g/dL (32.0-36.0); MEAN CORPUSCULAR VOLUME 90 fl (80-97); MONOCYTES % (AUTO) 11.4 % (3-13); PLATELET COUNT 152 10^3/uL (150-450); RED BLOOD COUNT 2.91 10^6/uL (3.72-5.28); RED CELL DISTRIBUTION WIDTH 13.8 % (11.5-14.0); SEGMENTED NEUTROPHILS % (AUTO) 58.5 % (42-78); TOTAL CELLS COUNTED % (AUTO) 100 %; WHITE BLOOD COUNT 9.4 10^3/uL (4.0-10.5)
--- NOTE | 2018-01-30 05:03 | PDOC PROGRESS REPORT ---
Subjective Progress Note for:: 01/30/18 Subjective:: called by RN for eval due to reported 76/43 BP, pt reports severe gas pain. Reason For Visit: OVARIAN CYST - Bilaterally Physical Exam - Physical Exam Vital Signs: Temp Pulse Resp BP Pulse Ox 98.9 F 106 H 16 90/56 L 98 01/30/18 04:00 01/30/18 04:00 01/30/18 04:00 01/30/18 04:00 01/30/18 04:00 Intake & Output 01/28/18 01/29/18 01/30/18 06:59 06:59 06:59 Intake Total 480 5525 Output Total 4750 Balance 480 775 General appearance: PRESENT: no acute distress, well-developed, well-nourished Head exam: PRESENT: atraumatic, normocephalic Respiratory exam: PRESENT: clear to auscultation gricelda, symmetrical, unlabored Cardiovascular exam: PRESENT: RRR. ABSENT: diastolic murmur, rubs, systolic murmur Pulses: PRESENT: normal dorsalis pedis pul, +2 pedal pulses bilateral GI/Abdominal exam: PRESENT: guarding, soft, tenderness - approp postop ttp, incision c/d/i, no bleeding from incision.. ABSENT: distended, mass, rebound Rectal exam: PRESENT: deferred Extremities exam: PRESENT: full ROM. ABSENT: calf tenderness, clubbing, pedal edema Musculoskeletal exam: PRESENT: ambulatory Neurological exam: PRESENT: alert, awake, oriented to person, oriented to place , oriented to time, oriented to situation, CN II-XII grossly intact. ABSENT: motor sensory deficit Psychiatric exam: PRESENT: appropriate affect, normal mood. ABSENT: homicidal ideation, suicidal ideation Skin exam: PRESENT: dry, intact, warm. ABSENT: cyanosis, rash Result Laboratory Results: 01/30/18 04:19 01/28/18 01/29/18 01/29/18 17:55 14:58 18:49 WBC 14.4 H 12.8 H RBC 3.08 L 3.19 L Hgb 9.4 L D 9.8 L Hct 28.1 L 28.7 L MCV 91 90 MCH 30.4 30.6 MCHC 33.3 34.0 RDW 12.7 13.2 Plt Count 241 190 Seg Neutrophils % 87.7 H Not Reportable Lymphocytes % 5.4 L Not Reportable Monocytes % 6.8 Not Reportable Eosinophils % 0.0 Not Reportable Basophils % 0.1 Not Reportable Absolute Neutrophils 12.7 H Not Reportable Absolute Lymphocytes 0.8 Not Reportable Absolute Monocytes 1.0 Not Reportable Absolute Eosinophils 0.0 Not Reportable Absolute Basophils 0.0 Not Reportable Blood Type O POSITIVE Antibody Screen NEGATIVE 01/30/18 04:19 WBC 9.4 RBC 2.91 L Hgb 9.0 L Hct 26.1 L MCV 90 MCH 30.8 MCHC 34.4 RDW 13.8 Plt Count 152 Seg Neutrophils % 58.5 Lymphocytes % 29.8 Monocytes % 11.4 Eosinophils % 0.0 Basophils % 0.3 Absolute Neutrophils 5.5 Absolute Lymphocytes 2.8 Absolute Monocytes 1.1 Absolute Eosinophils 0.0 Absolute Basophils 0.0 Blood Type Antibody Screen Impressions: Chest X-Ray 01/28/18 15:00 IMPRESSION: NO SIGNIFICANT RADIOGRAPHIC FINDING IN THE CHEST. Assessment & Plan - Diagnosis (1) Dermoid cyst of both ovaries Is this a current diagnosis for this admission?: Yes Plan: s/p Right oophorectomy and Left dermoid cyst excision (2) Postoperative anemia due to acute blood loss Is this a current diagnosis for this admission?: Yes Plan: When examined yesterday afternoon upon being notified pt had dizziness - pt noted to have bleeding from incision and large hematoma in incision (left greater than right). She was also very pale and appeared ill. She was taken back to the operating room and hematoma evacuated, Ex lap performed. No intraabdominal bleeding noted - see Operative Report by Dr. Zambrano. Upon being notified regarding low BP this am, I evaluated the patient again. Pt with approp color and is not pale with good cap refill. Stat CBC ordered. CBC done and now no significant change since CBC done last pm. Now BP normal. Pt recieved 2 units PRBCs and 1 FFP in OR yesterday afternoon. Plan to continue to monitor and consider advance care today. - Time Time Spent with patient: 25-34 minutes Smoking Cessation Education: over 10 minutes Medications reviewed and adjusted accordingly: Yes Anticipated discharge: Home Within: within 48 hours - Inpatient Certification Based on my medical assessment, after consideration of the patient's comorbidities, presenting symptoms, or acuity I expect that the services needed warrant INPATIENT care.: Yes I certify that my determination is in accordance with my understanding of Medicare's requirements for reasonable and necessary INPATIENT services [42 CFR 412.3e].: Yes Medical Necessity: Need Close Monitoring Due to Risk of Patient Decompensation, Need for Pain Control Post Hospital Care: D/C [employer] Station Manager Documentation
[2018-01-30 05:08] LABS: ALANINE AMINOTRANSFERASE 24 U/L (9-52); ALBUMIN 2.5 g/dL (3.5-5.0); ALKALINE PHOSPHATASE 31 U/L (38-126); ANION GAP 5 (5-19); ASPARTATE AMINO TRANSFERASE 17 U/L (14-36); BILIRUBIN,DIRECT 0.3 mg/dL (0.0-0.4); BILIRUBIN,TOTAL 1.3 mg/dL (0.2-1.3); BLOOD UREA NITROGEN 4 mg/dL (7-20); CALCIUM 7.9 mg/dL (8.4-10.2); CARBON DIOXIDE 23 mmol/L (22-30); CHLORIDE 113 mmol/L (98-107); GLUCOSE 94 mg/dL (75-110); POTASSIUM 3.4 mmol/L (3.6-5.0); SODIUM 141.2 mmol/L (137-145); TOTAL PROTEIN 4.6 g/dL (6.3-8.2)
[2018-01-30] MEDS ORDERED: SIMETHICONE 80 MG TAB.CHEW PO ONE (05:15)
[2018-01-30] MEDS: IBUPROFEN 800 MG TABLET PO SCH ×3 (06:29→21:06)
[2018-01-30] MEDS: DOCUSATE SODIUM 100 MG CAPSULE PO SCH (09:31)
[2018-01-30] MEDS: CITALOPRAM HYDROBROMIDE 20 MG TABLET PO SCH (09:31)
[2018-01-30] MEDS: SIMETHICONE 80 MG TAB.CHEW PO SCH ×4 (10:20→23:27)
--- NOTE | 2018-01-30 15:54 | PDOC PROGRESS REPORT ---
Subjective Progress Note for:: 01/30/18 Subjective:: Pt has no complaints. Doesn't have much of an appetite but tolerating solids. Feels a little bloated. Ambulating without dizziness/lightheadedness. Pain well controlled. Voiding. Reason For Visit: OVARIAN CYST Physical Exam - Physical Exam Vital Signs: Temp Pulse Resp BP Pulse Ox 98.5 F 113 H 18 105/67 99 01/30/18 15:25 01/30/18 15:25 01/30/18 15:25 01/30/18 15:25 01/30/18 15:25 Intake & Output 01/29/18 01/30/18 01/31/18 06:59 06:59 06:59 Intake Total 480 5525 980 Output Total 4750 4380 Balance 480 775 -3400 General appearance: PRESENT: no acute distress Head exam: PRESENT: atraumatic Respiratory exam: PRESENT: clear to auscultation gricelda Cardiovascular exam: PRESENT: RRR GI/Abdominal exam: PRESENT: diminished bowel sounds, soft, other - Nondistended. Dressing in place. Neurological exam: PRESENT: alert, awake, oriented to person, oriented to place , oriented to time Psychiatric exam: PRESENT: appropriate affect Skin exam: PRESENT: dry, warm Result Laboratory Results: 01/30/18 04:19 01/30/18 04:19 01/28/18 01/29/18 01/30/18 17:55 18:49 04:19 WBC 12.8 H RBC 3.19 L Hgb 9.8 L Hct 28.7 L MCV 90 MCH 30.6 MCHC 34.0 RDW 13.2 Plt Count 190 Seg Neutrophils % Not Reportable Lymphocytes % Not Reportable Monocytes % Not Reportable Eosinophils % Not Reportable Basophils % Not Reportable Absolute Neutrophils Not Reportable Absolute Lymphocytes Not Reportable Absolute Monocytes Not Reportable Absolute Eosinophils Not Reportable Absolute Basophils Not Reportable Sodium 141.2 Potassium 3.4 L Chloride 113 H Carbon Dioxide 23 Anion Gap 5 BUN 4 L Creatinine 0.51 L Est GFR ( Amer) > 60 Est GFR (Non-Af Amer) > 60 Glucose 94 Calcium 7.9 L Total Bilirubin 1.3 AST 17 ALT 24 Alkaline Phosphatase 31 L Total Protein 4.6 L Albumin 2.5 L Blood Type O POSITIVE Antibody Screen NEGATIVE 01/30/18 04:19 WBC 9.4 RBC 2.91 L Hgb 9.0 L Hct 26.1 L MCV 90 MCH 30.8 MCHC 34.4 RDW 13.8 Plt Count 152 Seg Neutrophils % 58.5 Lymphocytes % 29.8 Monocytes % 11.4 Eosinophils % 0.0 Basophils % 0.3 Absolute Neutrophils 5.5 Absolute Lymphocytes 2.8 Absolute Monocytes 1.1 Absolute Eosinophils 0.0 Absolute Basophils 0.0 Sodium Potassium Chloride Carbon Dioxide Anion Gap BUN Creatinine Est GFR ( Amer) Est GFR (Non-Af Amer) Glucose Calcium Total Bilirubin AST ALT Alkaline Phosphatase Total Protein Albumin Blood Type Antibody Screen Impressions: Chest X-Ray 01/28/18 15:00 IMPRESSION: NO SIGNIFICANT RADIOGRAPHIC FINDING IN THE CHEST. Assessment & Plan - Diagnosis (1) Postoperative anemia due to acute blood loss Is this a current diagnosis for this admission?: Yes Plan: H/H stable over last 3 values. Pt denies symptoms of anemia. BP and HR improved and normal. Continue to monitor. (2) Postop check Is this a current diagnosis for this admission?: Yes Plan: Pt tolerating regular diet. Denies n/v. Ambulating. Voiding without [place]. Continue routine postop care. Encourage continued ambulation to improve bowel function. - Time Time Spent with patient: Less than 15 minutes
[2018-01-31] MEDS: SIMETHICONE 80 MG TAB.CHEW PO SCH (06:49)
[2018-01-31] MEDS: IBUPROFEN 800 MG TABLET PO SCH (06:49)
[2018-01-31 08:23] VITALS: BP 123/67
--- NOTE | 2018-01-31 10:01 | PDOC PROGRESS REPORT ---
Subjective Progress Note for:: 01/31/18 Subjective:: care advanced yesterday, tolerating po intake, pain well controlled, voiding w/ o difficulty, afebrile Reason For Visit: OVARIAN CYST, anemia of acute blood loss Physical Exam - Physical Exam Vital Signs: Temp Pulse Resp BP Pulse Ox 98.6 F 100 16 123/67 98 01/31/18 08:18 01/31/18 08:18 01/31/18 08:18 01/31/18 08:18 01/31/18 08:18 Intake & Output 01/30/18 01/31/18 02/01/18 06:59 06:59 06:59 Intake Total 5525 980 Output Total 4750 4380 Balance 775 -3400 General appearance: PRESENT: no acute distress, well-developed, well-nourished Head exam: PRESENT: atraumatic, normocephalic Respiratory exam: PRESENT: clear to auscultation gricelda, symmetrical, unlabored Cardiovascular exam: PRESENT: RRR. ABSENT: diastolic murmur, rubs, systolic murmur Pulses: PRESENT: normal dorsalis pedis pul, +2 pedal pulses bilateral Vascular exam: PRESENT: normal capillary refill GI/Abdominal exam: PRESENT: normal bowel sounds, soft, tenderness. ABSENT: ascites, distended, firm - incision c/d/i, opsite placed, guarding, mass, organolmegaly, rebound, rigid Rectal exam: PRESENT: deferred Extremities exam: PRESENT: full ROM. ABSENT: calf tenderness, clubbing, pedal edema Neurological exam: PRESENT: alert, awake, oriented to person, oriented to place , oriented to time, oriented to situation, CN II-XII grossly intact. ABSENT: motor sensory deficit Psychiatric exam: PRESENT: appropriate affect, normal mood. ABSENT: homicidal ideation, suicidal ideation Skin exam: PRESENT: dry, intact, warm. ABSENT: cyanosis, rash Result Laboratory Results: 01/30/18 04:19 01/30/18 04:19 01/28/18 17:55 Blood Type O POSITIVE Antibody Screen NEGATIVE Impressions: Chest X-Ray 01/28/18 15:00 IMPRESSION: NO SIGNIFICANT RADIOGRAPHIC FINDING IN THE CHEST. Assessment & Plan - Diagnosis (1) Dermoid cyst of both ovaries Is this a current diagnosis for this admission?: Yes Plan: s/p Right oophorectomy (remnant of right ovary remains) and Left dermoid cyst excision (2) Postoperative anemia due to acute blood loss Is this a current diagnosis for this admission?: Yes Plan: She was taken back to the operating room and hematoma evacuated, Ex lap performed on 01/29. No intraabdominal bleeding noted - see Operative Report by Dr. Zambrano. CBC done - stable. Tolerated advance of care without difficulty. Pt recieved 2 units PRBCs and 1 FFP in OR 01/29. Meets criteria for discharge today. F/u in office this week. Pt reports h/o hemorrhage with and now with this surgery. Consider hematology consult as outpatient. - Time Time Spent with patient: 25-34 minutes Medications reviewed and adjusted accordingly: Yes Anticipated discharge: Home Within: within 24 hours Disposition: To Home - Inpatient Certification Based on my medical assessment, after consideration of the patient's comorbidities, presenting symptoms, or acuity I expect that the services needed warrant INPATIENT care.: Yes I certify that my determination is in accordance with my understanding of Medicare's requirements for reasonable and necessary INPATIENT services [42 CFR 412.3e].: Yes Medical Necessity: Other Post Hospital Care: D/C Inventory Control Analyst Documentation - Plan Summary Plan Summary: Discharge to home.
[2018-01-31] MEDS: CITALOPRAM HYDROBROMIDE 20 MG TABLET PO SCH (10:07)
[2018-01-31] MEDS: DOCUSATE SODIUM 100 MG CAPSULE PO SCH (10:08)
--- NOTE | 2018-01-31 10:09 | PDOC DISCHARGE SUMMARY ---
General - Admit/Disc Date/PCP Admission Date/Primary Care Provider: 01/28/18 17:24 Discharge Date: 01/31/18 - Discharge Diagnosis (1) Dermoid cyst of both ovaries Is this a current diagnosis for this admission?: Yes Summary: s/p Right oophorectomy (remnant of right ovary remains) and Left dermoid cyst excision (2) Postoperative anemia due to acute blood loss Is this a current diagnosis for this admission?: Yes Summary: She was taken back to the operating room and hematoma evacuated, Ex lap performed on 01/29. No intraabdominal bleeding noted - see Operative Report by Dr. Zambrano. CBC done - stable. Tolerated advance of care without difficulty. Pt recieved 2 units PRBCs and 1 FFP in OR 01/29. Meets criteria for discharge today. F/u in office this week. Pt reports h/o hemorrhage with and now with this surgery. Consider hematology consult as outpatient. - Additional Information Resuscitation Status: Full Code Discharge Diet: Regular Discharge Activity: No Driving, No Lifting Over 10 Pounds, No Lifting/Push/ Pulling, Pelvic Rest, No tub bath Home Medications: Citalopram Hydrobromide [Celexa 20 mg Tablet] 20 mg PO DAILY 01/28/18 Hydrocodone/Acetaminophen [[place] 5-325 mg Tablet] 1 tab PO Q4HP PRN 01/28/18 Naproxen [Naprosyn] 500 mg PO Q12 01/28/18 History of Present Illness Patient complains of: abd pain - known ovarian cyst History of Present Illness: HARRISON STEARNS is a 22 year old female presented through the ER with known bilateral ovarian cysts. She had significant pain on the right and was admitted for surgery the following morning. She underwent surgery on 01/29. Hospital Course Hospital Course: 22 year old female presented through the ER with known bilateral ovarian cysts. She had significant pain on the right and was admitted for surgery the following morning. She underwent surgery on 01/29 - Ex Lap with Right oophorectomy (small remnant remains) and left dermoid removed. Torsion noted on right but able to save right fallopian tube. Pt developed postoperative hematoma and was taken back to the operative room due to rectus muscle hematoma. Physical Exam - Physical Exam Vital Signs: Temp Pulse Resp BP Pulse Ox 98.6 F 100 16 123/67 98 01/31/18 08:18 01/31/18 08:18 01/31/18 08:18 01/31/18 08:18 01/31/18 09:43 Intake & Output 01/30/18 01/31/18 02/01/18 06:59 06:59 06:59 Intake Total 5525 980 Output Total 4750 4380 Balance 775 -3400 General appearance: PRESENT: no acute distress, well-developed, well-nourished Head exam: PRESENT: atraumatic, normocephalic Respiratory exam: PRESENT: clear to auscultation gricelda, symmetrical, unlabored Cardiovascular exam: PRESENT: RRR. ABSENT: diastolic murmur, rubs, systolic murmur Pulses: PRESENT: normal dorsalis pedis pul, +2 pedal pulses bilateral Vascular exam: PRESENT: normal capillary refill GI/Abdominal exam: PRESENT: normal bowel sounds, soft, tenderness - appropc postop, other - incision c/d/i. ABSENT: distended, guarding, mass, organolmegaly, rebound Rectal exam: PRESENT: deferred Extremities exam: PRESENT: full ROM. ABSENT: calf tenderness, clubbing, pedal edema Neurological exam: PRESENT: alert, awake, oriented to person, oriented to place , oriented to time, oriented to situation, CN II-XII grossly intact. ABSENT: motor sensory deficit Psychiatric exam: PRESENT: appropriate affect, normal mood. ABSENT: homicidal ideation, suicidal ideation Skin exam: PRESENT: dry, intact, warm. ABSENT: cyanosis, rash Result Laboratory Results: 01/30/18 04:19 01/30/18 04:19 01/28/18 17:55 Blood Type O POSITIVE Antibody Screen NEGATIVE Impressions: Chest X-Ray 01/28/18 15:00 IMPRESSION: NO SIGNIFICANT RADIOGRAPHIC FINDING IN THE CHEST. Status: Imported from PACS Plan Discharge Plan: Discharge to home. Time Spent: Less than 30 Minutes
== END 2018-01-31 10:59 | disposition home or self-care (01) | DRG 742 ==
LOC: ER 14:05 → EH 15:04 → 2N 16:34 → OBSVTOIN 17:24
PROVIDERS: ADMIT Obstetrics & Gynecology; ATTEND Obstetrics & Gynecology
PROC: 0UB10ZZ Excision of Left Ovary, Open Approach (ICD-10-PCS; 2018-01-29)
PROC: 0W3F0ZZ Control Bleeding in Abdominal Wall, Open Approach (ICD-10-PCS; 2018-01-29)
PROC: 30233K1 Transfusion of Nonautologous Frozen Plasma into Peripheral Vein, Percutaneous Approach (ICD-10-PCS; 2018-01-29)
PROC: 30233N1 Transfusion of Nonautologous Red Blood Cells into Peripheral Vein, Percutaneous Approach (ICD-10-PCS; 2018-01-29)
PROC: 0UB00ZZ Excision of Right Ovary, Open Approach (ICD-10-PCS; principal; 2018-01-29 08:15)
DX: D27.1 Benign neoplasm of left ovary (principal); D62 Acute posthemorrhagic anemia; L76.32 Postprocedural hematoma of skin and subcutaneous tissue following other procedure; D27.0 Benign neoplasm of right ovary
CPT/HCPCS: 36415; 36430; 71046; 80053; 81001; 840; 84702; 85025; 85362; 85610; 85730; 86850; 86900; 86901; 86920; 88305; 88307; 93005; 93010; 99285; C1765; J0131; J0330; J1100; J2250; J2704; J3010; J3490; J7030; J7120; P9016; P9017